=== PATIENT | female | born 1975 | race Caucasian/White ===

== ENCOUNTER 2017-07-03 09:06 | Day surgery (SDC) | payer MEDICAID ==
[2017-07-03] MEDS ORDERED: CEFAZOLIN 1 GM INJ (11:38)
[2017-07-03] MEDS ORDERED: ROCURONIUM 50 MG INJ (11:38)
[2017-07-03] MEDS ORDERED: PROPOFOL 20 ML (11:38)
[2017-07-03] MEDS ORDERED: MIDAZOLAM 1 MG/ML 2 ML INJ (11:38)
[2017-07-03] MEDS ORDERED: LIDOCAINE 100 MG SYRINGE (11:38)
[2017-07-03] MEDS ORDERED: FENTAnyl 50 MCG/ML VIAL (11:39)
[2017-07-03] MEDS ORDERED: METOCLOPRAMIDE 10 MG INJ (12:59)
[2017-07-03] MEDS ORDERED: FAMOTIDINE 20 MG INJ (12:59)
[2017-07-03] MEDS ORDERED: ONDANSETRON 4 MG INJ (12:59)
[2017-07-03] MEDS ORDERED: DEXAMETHASONE 4 MG/ML 1 ML INJ (12:59)
[2017-07-03] MEDS ORDERED: SUGAMMADEX SODIUM 200 MG/2 ML VIAL IV (13:24)
[2017-07-03] MEDS ORDERED: OXYCODONE/ACETAMINOPHEN (5/325) TAB PO (13:30)
[2017-07-03] MEDS ORDERED: FENTAnyl 50 MCG/ML VIAL IV ×2 (13:30)
[2017-07-03] MEDS ORDERED: METOCLOPRAMIDE 10 MG INJ IV (13:30)
[2017-07-03] MEDS ORDERED: LORAZEPAM 2 MG INJ IV (13:30)
[2017-07-03] MEDS ORDERED: ALBUTEROL 0.083% (NEB) 2.5 MG/3 ML AMP HHN (13:30)
[2017-07-03] MEDS: MEPERIDINE 25 MG INJ IV (14:05)
[2017-07-03] MEDS: ONDANSETRON 4 MG INJ IV (14:06)
[2017-07-03] MEDS: BUPIVACAINE 0.5%/EPI (SDV) 30 ML INJ (14:06)
[2017-07-03] MEDS: FENTAnyl 50 MCG/ML VIAL IV ×5 (14:07→14:42)
[2017-07-03] MEDS: OXYCODONE/ACETAMINOPHEN (5/325) TAB PO (14:44)
[2017-07-03] MEDS: KETOROLAC 30 MG INJ IV (16:03)
== END 2017-07-03 16:50 | disposition home or self-care (01) ==
LOC: SDS 09:06
DX: Z30.2 Encounter for sterilization (principal)
CPT/HCPCS: 58600; 88302